=== PATIENT | male | born 1960 | race Caucasian/White ===

== ENCOUNTER → 2021-02-17 04:04 | Outpatient (CLI) | payer BC, SELFPAY ==
[2021-02-17 19:03] LABS: SARS-CoV-2 RNA PCR Negative
== END ==
PROVIDERS: PCP Internal Medicine; Visit Provider Urology
DX: Z01.812 Encounter for preprocedural laboratory examination (principal); Z20.822 Contact with and (suspected) exposure to COVID-19
CPT/HCPCS: C9803; U0003; U0005

== ENCOUNTER 2021-02-19 01:05 | Day surgery (SDC) | payer BC, SELFPAY ==
[2021-02-16 15:08] VITALS: BMI 35.2
[2021-02-19] VITALS (9 sets, daily range): BP systolic 119–135; BP diastolic 70–90; PULSE 64–88; RESP 10–20; TEMP 36.3–37; O2SAT 97–100
--- NOTE | ~2021-02-19 | XR_ITS ---
EXAMINATION: XR urethrocystogram EXAM DATE: 02/19/2021 13:22 INDICATION: Urethral stricture. Retrograde urethrogram. TECHNIQUE: Fluoroscopy used during XR urethrocystogram performed by Dr. Chad Johnson MD. Total fluoroscopic time of 0.5 minutes. A total of 27 images obtained for the exam. The DAP for thi s procedure was 479 radcm2. Cine run(s) available for review. FINDINGS: Penile urethra was injected. There is stricturing at the penile/bulbous urethra junction, with only trickle of contrast making it beyond this. Uncertain how long this stricture is given that there was likely low pressure proximal to the stricture. Catheter was placed, likely with dilation. C orrelate with procedure note. IMPRESSION: Fluoroscopy used during dilation of mid urethral stricture. Reviewed, dictated and finalized at location A.
[2021-02-19] MEDS: LACTATED RINGERS 1,000 ML 30 ML IV CONT (11:25)
--- NOTE | 2021-02-19 11:27 | WPDHPUPDATE1 ---
History and Physical Update Update Date/Time: 02/19/21 11:27 History and Physical has been reviewed, including an updated exam of the patient. There are NO changes in the patient's condition. Risks, benefits, and alternatives have been discussed and questions answered. Patient agrees to proceed with procedure.
[2021-02-19 11:31] LABS: Glucose Point of Care 144 (65-105)
[2021-02-19 11:46] LABS: Anion Gap 9 mmol/L (8-16); Blood Urea Nitrogen 16 mg/dL (9-20); Calcium 9.5 mg/dL (8.4-10.2); Carbon Dioxide 25 mmol/L (22-30); Chloride 105 mmol/L (98-107); Estimated CRCL calculation 66 ml/min; Estimated Glomerular Filt Rate > 60; Glucose 136 mg/dL (75-110); Potassium 4.4 mmol/L (3.4-5.0); Sodium 139 mmol/L (137-145)
--- NOTE | 2021-02-19 12:21 | WPDANESEPPF ---
Anes - Initial Pre Proc Eval Procedure: Operation Date: 02/19/21 12:45 Proposed Procedures p Retrograde urethrogram, dilatation urethral stricture - Chad Johnson MD Date/Time: 02/19/21 12:21 Surgeon: Chad Johnson MD Pre Op Diagnosis: urethral stricture Patient Data Age: 60 Gender: M Height: 5 ft 7 in Weight: 99.4 kg Last Vital Signs Temp 37.0 C 02/19/21 10:57 Pulse 88 02/19/21 10:57 Resp 20 02/19/21 10:57 BP 130/90 02/19/21 10:57 Pulse Ox 100 02/19/21 10:57 Allergies Allergy/AdvReac Type Severity Reaction Status Date / Time niacin AdvReac Unknown HOT FLASH Verified 02/19/21 11:40 Home Medications Medication Instructions Recorded Confirmed Type aspirin 81 mg PO DAILY 02/16/21 02/19/21 History bupropion HCl 100 mg PO BID 02/16/21 02/19/21 History cholecalciferol (vitamin D3) 25 mcg PO DAILY 02/16/21 02/19/21 History [Vitamin D3] fenofibrate nanocrystallized 160 mg PO DAILY 02/16/21 02/19/21 History metformin 1,000 mg PO BID 02/16/21 02/19/21 History rosuvastatin 40 mg PO DAILY 02/16/21 02/19/21 History Laboratory Tests 02/19/21 02/19/21 11:23 11:24 Sodium 139 mmol/L mmol/L (137-145) Potassium 4.4 mmol/L mmol/L (3.4-5.0) Chloride 105 mmol/L mmol/L (98-107) Carbon Dioxide 25 mmol/L mmol/L (22-30) Anion Gap 9 mmol/L mmol/L (8-16) BUN 16 mg/dL mg/dL (9-20) Creatinine 1.20 mg/dL mg/dL (0.7-1.3) Estim Creat Clear Calc 66 ml/min ml/min Estimated GFR > 60 (59 - ) Glucose 136 mg/dL H mg/dL (75-110) POC Capillary Glucose 144 mg/dl H mg/dl (65-105) Calcium 9.5 mg/dL mg/dL (8.4-10.2) Patient hx anesthesia problems: none Family hx anesthesia problems: none PMFSH Past Medical History Medical History Anxiety CAD (coronary artery disease) Depression Diabetes Hyperlipidemia Hypertension FLORENTIN (obstructive sleep apnea) Surgical History Surgical History Stented coronary artery Social History Social History Smoking packs per day: 1 Smoking cigarettes per day: 20.0 Years smoked: 20 Smoking pack-years: 20.00 Smoking status: Current every day smoker Tobacco type: e-cigarettes/vaping Additional smoking assessment comments: QUIT CIGARETTES 2007, VAPING OR GUM SINCE Alcohol intake: current Alcohol use details: RARE Substance use: never Substance use type: does not use Living arrangements: with family Gender identity (if verbalized by the patient): Male Spiritual care concerns: No Anes - Eval Final PreProcedure Day of Procedure 02/19/21 12:21 Patient weight: obese Heart: regular rate and rhythm Lungs: decreased breath sounds Airway: Mallampati scale class II Neurological: alert and oriented Last oral intake: >/= 8 hours ASA classification: III Emergent: no Anesthetic plan: proceed Anesthesia type and monitoring: general GIVS and standard monitoring Informed Consent: The patient's anesthetic plan and its attendant risks and benefits were discussed with the patient/family/POA. Questions were solicited and answers provided to the satisfaction of the patient/family/POA.
[2021-02-19] MEDS: ceFAZolin 2 GM/D5W 50 ML 2 GM/50 ML BAG IVPB (12:49)
[2021-02-19] MEDS: LIDOCAINE HCL 2% GEL UROJET 10 ML PKG MUCOUS MEM (13:04)
--- NOTE | 2021-02-19 13:18 | P.OP_ITS ---
Procedure Note - Detailed Date of procedure: 02/19/21 Pre-op diagnosis: urethral stricture Post-op diagnosis: same Procedure performed: Retrograde urethrogram, dilation of urethral stricture using a Amplantz dilators, cystoscopy, complex alva placement Description of procedure: Patient is taken the operative suite and correctly identified. Once anesthesia was obtained was placed in dorsal lithotomy position and prepped and draped usual sterile fashion. A 22 Albanian scope was inserted in the meatus. He has a tight membranous urethral stricture. It was noted that there was a 2nd stricture proximal to that in what appears to be the bulbar urethra. Retrograde urethrogram was performed and can this revealed this tight area. We required a flexible ureteral scope in order to manipulate the wire past both strictures. A superstiff wire had been placed into the bladder. We then used Amplantz dilators to dilate up to 22 Albanian. Reinspection revealed an open channel at this time. There is no bladder tumors noted. He does have some mild lateral lobe hypertrophy. 2% viscous lidocaine was inserted into the urethra. An 18 [place]ian [place] tip catheter was then placed over the guidewire to the bladder. The balloon was inflated with 10 cc of normal saline. This was connected to bag drainage. Patient is taken recovery stable condition. Will plan on removing the Alva on Tuesday for a voiding trial in all seen person the office 2 weeks after that. Anesthesia: GLMA Surgeon: Chad Johnson MD Drains: Yes Packing: No Pathology: none sent Complications: No immediate complications Condition: stable Disposition: PACU
[2021-02-19 13:41] LABS: Glucose Point of Care 115 (65-105)
[2021-02-19] MEDS: oxyCODONE HCL (*CRX) 5 MG TAB IR PO (14:31)
== END 2021-02-19 15:35 | disposition home or self-care (01) ==
PROVIDERS: Anesthesiology; PCP Internal Medicine; Visit Provider Urology
PROC: 0T7D8ZZ Dilation of Urethra, Via Natural or Artificial Opening Endoscopic (ICD-10-PCS; CPT 52281; principal; 2021-02-19 12:45)
DX: N35.913 Unspecified membranous urethral stricture, male (principal); N40.0 Benign prostatic hyperplasia without lower urinary tract symptoms; I10 Essential (primary) hypertension; I25.10 Atherosclerotic heart disease of native coronary artery without angina pectoris; E11.9 Type 2 diabetes mellitus without complications; F41.8 Other specified anxiety disorders; G47.33 Obstructive sleep apnea (adult) (pediatric); E78.5 Hyperlipidemia, unspecified; Z95.5 Presence of coronary angioplasty implant and graft; F17.290 Nicotine dependence, other tobacco product, uncomplicated; E66.9 Obesity, unspecified; Z68.34 Body mass index [BMI] 34.0-34.9, adult; Z79.82 Long term (current) use of aspirin; Z79.84 Long term (current) use of oral hypoglycemic drugs
CPT/HCPCS: 52281; 36415; 51610; 74450; 80048; 82948; A9270; C1726; C1769; C9803; J0690; J1100; J2250; J2405; J2704; J3010; J7120; Q9966; U0003; U0005

== ENCOUNTER 2021-10-02 01:52 | Day surgery (SDC) | payer BC, SELFPAY ==
[2021-09-16 15:13] VITALS: BMI 34.0
--- NOTE | 2021-10-01 12:35 | PM.HPGS ---
History of Present Illness History of Present Illness Consent: Risks, benefits, and alternatives have been discussed and questions answered. Patient agrees to proceed with procedure. Chief complaint: hx of colon polyps Narrative: Gay Bain is a 61 year old male referred for colon cancer screening Review of Systems Review of Systems: All systems reviewed & are unremarkable except as noted in HPI and below PMFSH Past Medical History Medical History Anxiety CAD (coronary artery disease) Depression Diabetes Hyperlipidemia Hypertension FLORENTIN (obstructive sleep apnea) Surgical History Surgical History Stented coronary artery Social History Social History Smoking packs per day: 1 Smoking cigarettes per day: 20.0 Years smoked: 20 Smoking pack-years: 20.00 Smoking status: Current every day smoker Tobacco type: e-cigarettes/vaping Additional smoking assessment comments: QUIT CIGARETTES 2008, VAPING OR GUM SINCE Alcohol intake: current Alcohol use details: rarely Substance use: never Substance use type: does not use Living arrangements: with family Gender identity (if verbalized by the patient): Male Spiritual care concerns: No Meds Home Medications and Allergies Home Medications Medication Instructions Recorded Confirmed Type aspirin 81 mg PO DAILY 02/16/21 09/16/21 History fenofibrate nanocrystallized 160 mg PO DAILY 02/16/21 09/16/21 History metformin 1,000 mg PO BID 02/16/21 09/16/21 History rosuvastatin 20 mg PO DAILY 02/16/21 09/16/21 History cyanocobalamin (vitamin B-12) 1,000 mcg PO DAILY 09/16/21 09/16/21 History ergocalciferol (vitamin D2) 50,000 unit PO WEEKLY 09/16/21 09/16/21 History escitalopram oxalate 20 mg PO DAILY 09/16/21 09/16/21 History losartan 25 mg PO DAILY 09/16/21 09/16/21 History metoprolol tartrate 12.5 mg PO BID 09/16/21 09/16/21 History nitroglycerin 0.4 mg SUBLINGUAL PRN PRN 09/16/21 09/16/21 History Allergies Allergy/AdvReac Type Severity Reaction Status Date / Time niacin AdvReac Unknown HOT FLASH Verified 09/16/21 15:04 Exam Const: General: alert Orientation/consciousness: patient oriented x3 Resp: Auscultation: clear to auscultation bilaterally Cardio: Rhythm: regular rhythm GI: GI Palp: Yes Soft to palpation and No Tenderness to palpation present (GI) Neuro: General: patient oriented x3 Assessment and Plan Assessment and plan (1) Colon cancer screening: Code(s): Z12.11 - Encounter for screening for malignant neoplasm of colon Status: Acute Assessment and Plan: Colonoscopy with possible biopsy or polypectomy or cautery or injection of substances.
[2021-10-02 11:00] VITALS: BP 134/74; PULSE 79; RESP 20; TEMP 36.3; O2SAT 100; BMI 32.3
[2021-10-02] MEDS: LACTATED RINGERS 1,000 ML 150 ML IV CONT (11:04)
[2021-10-02 11:17] LABS: Glucose Point of Care 110 mg/dl (65-105)
--- NOTE | 2021-10-02 11:31 | WPDANESEPPF ---
Anes - Initial Pre Proc Eval Procedure: Operation Date: 10/02/21 12:30 Proposed Procedures p Screening Colonoscopy - Mann Tim MD Date/Time: 10/02/21 11:31 Surgeon: Mann Tim MD Pre Op Diagnosis: hx of colon polyps Patient Data Age: 61 Gender: M Height: 1.7 m Weight: 93.8 kg Last Vital Signs Temp 97.3 F L 10/02/21 11:00 Pulse 79 10/02/21 11:00 Resp 20 10/02/21 11:00 BP 134/74 10/02/21 11:00 Pulse Ox 100 10/02/21 11:00 Allergies Allergy/AdvReac Type Severity Reaction Status Date / Time niacin AdvReac Unknown HOT FLASH Verified 10/02/21 10:59 Home Medications Medication Instructions Recorded Confirmed Type aspirin 81 mg PO DAILY 02/16/21 10/02/21 History fenofibrate nanocrystallized 160 mg PO DAILY 02/16/21 10/02/21 History metformin 1,000 mg PO BID 02/16/21 10/02/21 History rosuvastatin 20 mg PO DAILY 02/16/21 10/02/21 History cyanocobalamin (vitamin B-12) 1,000 mcg PO DAILY 09/16/21 10/02/21 History ergocalciferol (vitamin D2) 50,000 unit PO WEEKLY 09/16/21 10/02/21 History escitalopram oxalate 20 mg PO DAILY 09/16/21 10/02/21 History losartan 25 mg PO DAILY 09/16/21 10/02/21 History metoprolol tartrate 12.5 mg PO BID 09/16/21 10/02/21 History nitroglycerin 0.4 mg SUBLINGUAL PRN PRN 09/16/21 10/02/21 History Laboratory Tests 10/02/21 11:14 POC Capillary Glucose 110 mg/dl H mg/dl (65-105) Patient hx anesthesia problems: none Family hx anesthesia problems: none Results Review: All pre-operative results and documents have been reviewed as part of the pre-operative evaluation. [facility] Past Medical History Medical History Anxiety CAD (coronary artery disease) Depression Diabetes Hyperlipidemia Hypertension FLORENTIN (obstructive sleep apnea) Surgical History Surgical History Stented coronary artery Social History Social History Smoking packs per day: 1 Smoking cigarettes per day: 20.0 Years smoked: 20 Smoking pack-years: 20.00 Smoking status: Current every day smoker Tobacco type: e-cigarettes/vaping Additional smoking assessment comments: QUIT CIGARETTES 2008, VAPING OR GUM SINCE Alcohol intake: current Alcohol use details: rarely Substance use: never Substance use type: does not use Living arrangements: with family Gender identity (if verbalized by the patient): Male Spiritual care concerns: No Anes - Eval Final PreProcedure Day of Procedure 10/02/21 11:31 Patient weight: overweight Heart: regular rate and rhythm Lungs: clear to auscultation Airway: Mallampati scale class II Neurological: alert and oriented Last oral intake: >/= 8 hours ASA classification: III Emergent: no Anesthetic plan: proceed Anesthesia type and monitoring: general GIVS and standard monitoring Results Review: All pre-operative results and documents have been reviewed as part of the pre-operative evaluation. Informed Consent: The patient's anesthetic plan and its attendant risks and benefits were discussed with the patient/family/POA. Questions were solicited and answers provided to the satisfaction of the patient/family/POA.
[2021-10-02 12:33] VITALS: BP 114/69; PULSE 67; RESP 18; O2SAT 99
[2021-10-02 12:43] VITALS: BP 111/69; PULSE 65; RESP 14; O2SAT 99
[2021-10-02 12:53] VITALS: BP 123/73; PULSE 65; RESP 16; O2SAT 98
== END 2021-10-02 13:02 | disposition home or self-care (01) ==
PROVIDERS: PCP Internal Medicine; Visit Provider Internal Medicine Gastroenterology
PROC: 0DJD8ZZ Inspection of Lower Intestinal Tract, Via Natural or Artificial Opening Endoscopic (ICD-10-PCS; CPT 45378; principal; 2021-10-02 12:30)
DX: Z12.11 Encounter for screening for malignant neoplasm of colon (principal); D12.4 Benign neoplasm of descending colon; Z79.82 Long term (current) use of aspirin; Z79.84 Long term (current) use of oral hypoglycemic drugs; F41.8 Other specified anxiety disorders; I25.10 Atherosclerotic heart disease of native coronary artery without angina pectoris; E78.5 Hyperlipidemia, unspecified; I10 Essential (primary) hypertension; G47.33 Obstructive sleep apnea (adult) (pediatric); Z95.5 Presence of coronary angioplasty implant and graft; F17.290 Nicotine dependence, other tobacco product, uncomplicated
CPT/HCPCS: 45380; 82948; 88305; J2704; J7120